=== PATIENT | male | born 1945 | race Two or more races ===

== ENCOUNTER 2020-10-31 15:51 | Inpatient (IN) | payer OTHER, MEDICAID ==
[~2020-10-31] VITALS: Ht 172.7 cm; Wt 76.1 kg
[2020-10-31 16:14] LABS: Basophils # (auto) 0.1 10 ^3/uL (0-0.2); Eosinophils # (auto) 0.9 10 ^3/uL (0-0.8); Eosinophils % (auto) 7.9 % (0.0-7.0); Hematocrit 37.1 % (41.0-53.0); Hemoglobin 12.7 g/dL (13.5-17.5); Lymphocytes # (auto) 1.5 10 ^3/uL (0.4-5.4); Lymphocytes % (auto) 13.6 % (10.0-50.0); Mean Corpuscular Hemoglobin 28.6 pg (28.0-32.0); Mean Corpuscular Hgb Conc. 34.2 g/dL (32.0-36.0); Mean Corpuscular Volume 83.6 fL (80.0-100.0); Monocytes # (auto) 0.8 10 ^3/uL (0-1.3); Monocytes % (auto) 7.5 % (0.0-12.0); Neutrophils # (auto) 7.6 10 ^3/uL (1.6-8.6); Platelet Count (auto) 343 10^3/uL (140-450); Red Blood Cells 4.43 10^6/uL (4.5-5.90); Red Cell Distribution Width 14.9 % (11.8-14.3); White Blood Cell 10.9 10^3/uL (4.4-10.8)
[2020-10-31] MEDS ORDERED: NITROGLYCERIN 0.4 MG SL TAB SL ONE (16:15)
[2020-10-31] MEDS ORDERED: MORPHINE SULFATE 4 MG/ML SYR/VIAL IV ONE ×2 (16:15→18:00)
[2020-10-31] MEDS ORDERED: ASPirin 81 mg TAB PO ONE (16:15)
[2020-10-31] MEDS ORDERED: ONDANSETRON HCL 4 MG/2 ML VIAL IV ONE ×2 (16:15→18:00)
[2020-10-31 16:31] LABS: Albumin 3.9 g/dL (3.4-5.0); BUN/Creatinine Ratio 17.4; Calcium 9.3 mg/dL (8.5-10.1); Potassium 4.1 mmol/L (3.5-5.1)
[2020-10-31 16:38] LABS: Bilirubin, Total 0.3 mg/dL (0.2-1.0)
[2020-10-31] MEDS ORDERED: ENOXAPARIN SOD 100 MG/1 ML SYRINGE SC ONE (17:00)
[2020-10-31] MEDS ORDERED: ONDANSETRON HCL 4 MG/2 ML VIAL IV PRN (18:00)
[2020-10-31] MEDS ORDERED: ACETAMINOPHEN 500 MG TAB PO PRN (18:00)
[2020-10-31] MEDS ORDERED: MORPHINE SULF INJ 2 MG/ML SYRINGE 1ML IV PRN (18:00)
[2020-10-31] MEDS ORDERED: NITROGLYCERIN 0.4 MG SL TAB SL PRN (18:00)
[2020-10-31 18:29] LABS: Urine WBC None Seen /hpf (0 - 3)
[2020-10-31 18:54] LABS: Urine Bacteria NONE SEEN /hpf (None Seen); Urine Blood Negative /uL (Negative); Urine Specific Gravity 1.003 (1.001-1.035)
[2020-10-31 18:59] LABS: Cholesterol 130 mg/dL (< 200); Triglycerides 203 mg/dL (< 150)
[2020-10-31 19:02] LABS: HDL Cholesterol 39 mg/dL (40-59); LDL Cholesterol 66 mg/dL (< 100)
[2020-10-31 19:03] LABS: Alcohol, Urine < 3.0 mg/dL (0-10); Amphetamine Screen, Urine NEGATIVE (NEGATIVE); Barbiturate Scree,Urine NEGATIVE (NEGATIVE); Benzodiazephine Screen, Urine NEGATIVE (NEGATIVE); Cannabinoid Screen, Urine POSITIVE (NEGATIVE); Cocaine Screen, Urine NEGATIVE (NEGATIVE); Opiate Scree,Urine NEGATIVE (NEGATIVE); Phencyclidine Screen, Urine NEGATIVE (NEGATIVE)
[2020-10-31 19:48] LABS: INR 1.01 (0.9-1.15); Partial Thromboplastin Time 27.6 sec (23.0-31.2)
[2020-10-31] MEDS: METOPROLOL TARTRATE 25 MG TAB PO SCH ×2 (22:00→22:13)
[2020-10-31] MEDS: ATORVASTATIN 20 MG TAB PO SCH ×2 (22:00→22:13)
[2020-10-31] MEDS: LISINOPRIL 20 MG TAB PO SCH ×2 (22:00→22:12)
[2020-10-31] MEDS: FAMOTIDINE 20 MG TAB PO SCH ×2 (22:00→22:12)
[2020-11-01] MEDS: hydrALAZINE HCL 20 MG/ML VL IV PRN (02:24)
[2020-11-01 05:33] VITALS: BP 141/62
[2020-11-01] MEDS: ENOXAPARIN SOD 80 MG/0.8ML SYRINGE SC SCH ×2 (06:51→16:37)
[2020-11-01] MEDS: HYDROcodone-ACET 10/325MG TAB PO PRN ×2 (06:51→14:54)
[2020-11-01 09:18] VITALS: BP 147/91
[2020-11-01] MEDS ORDERED: ANGIOMAX 250 MG VIAL IV ONE (09:18)
[2020-11-01] MEDS ORDERED: HEPARIN SODIUM (PORCINE) 5000 UNITS/ML 1ML VIAL ONE (09:18)
[2020-11-01] MEDS ORDERED: VERAPAMIL 2.5MG/ML INJ 2ML VIAL IV ONE (09:18)
[2020-11-01] MEDS ORDERED: fentaNYL CITRATE 100 MCG/2 ML VL ONE (09:19)
[2020-11-01] MEDS ORDERED: LIDOCAINE 2%HCL (LOCAL ANESTH.) INJ 20ML MDV ONE (09:19)
[2020-11-01] MEDS ORDERED: SODIUM CHL 0.9% 0 ML ONE (09:19)
[2020-11-01] MEDS ORDERED: IODIXANOL 320MG/ML 100ML BTL IV ONE ×2 (09:19→10:23)
[2020-11-01] MEDS ORDERED: MIDAZOLAM HCL 1MG/1ML-2 ML VIAL ONE (09:19)
[2020-11-01] MEDS ORDERED: diphenhdrAMINE HCL 50 MG/1 ML VL ONE (09:49)
[2020-11-01] MEDS ORDERED: NITROGLYCERIN 0.4MG/DOSE SPRAY 4.9GM ONE (10:30)
[2020-11-01] MEDS ORDERED: ALPRAZolam 0.5 MG TAB ONE (10:50)
[2020-11-01] MEDS: METOPROLOL TARTRATE 25 MG TAB PO SCH ×2 (12:57→21:52)
[2020-11-01] MEDS: FAMOTIDINE 20 MG TAB PO SCH ×2 (12:57→21:52)
[2020-11-01] MEDS: LISINOPRIL 20 MG TAB PO SCH ×2 (12:58→21:52)
[2020-11-01 13:02] VITALS: BP 185/80
[2020-11-01 13:19] LABS: Basophils # (auto) 0.1 10 ^3/uL (0-0.2); Eosinophils # (auto) 0.1 10 ^3/uL (0-0.8); Eosinophils % (auto) 1.6 % (0.0-7.0); Hematocrit 39.2 % (41.0-53.0); Hemoglobin 13.1 g/dL (13.5-17.5); Lymphocytes # (auto) 1.5 10 ^3/uL (0.4-5.4); Lymphocytes % (auto) 18.1 % (10.0-50.0); Mean Corpuscular Hemoglobin 28.4 pg (28.0-32.0); Mean Corpuscular Hgb Conc. 33.5 g/dL (32.0-36.0); Mean Corpuscular Volume 84.6 fL (80.0-100.0); Monocytes # (auto) 0.7 10 ^3/uL (0-1.3); Monocytes % (auto) 8.2 % (0.0-12.0); Neutrophils # (auto) 5.8 10 ^3/uL (1.6-8.6); Neutrophils % (auto) 71.1 % (37.0-80.0); Platelet Count (auto) 338 10^3/uL (140-450); Red Blood Cells 4.63 10^6/uL (4.5-5.90); Red Cell Distribution Width 14.9 % (11.8-14.3); White Blood Cell 8.2 10^3/uL (4.4-10.8)
[2020-11-01 13:39] LABS: Albumin 3.7 g/dL (3.4-5.0); BUN/Creatinine Ratio 13.5; Calcium 9.7 mg/dL (8.5-10.1); Potassium 3.9 mmol/L (3.5-5.1)
[2020-11-01 13:42] LABS: Bilirubin, Total 0.4 mg/dL (0.2-1.0); Total Protein 7.7 g/dL (6.4-8.2)
[2020-11-01] MEDS: SODIUM CHLOR 0.9% PF (SALINE LOCK) 10ML VIAL/SYR IV SCH ×2 (14:00→21:51)
[2020-11-01 16:50] VITALS: BP 147/73
[2020-11-01] MEDS: ATORVASTATIN 20 MG TAB PO SCH (21:51)
[2020-11-01] MEDS: ALPRAZolam 0.5 MG TAB PO SCH (21:52)
[2020-11-01 22:00] VITALS: BP 145/77
[2020-11-02] MEDS: HYDROcodone-ACET 10/325MG TAB PO PRN ×3 (04:04→22:10)
[2020-11-02] MEDS: hydrALAZINE HCL 20 MG/ML VL IV PRN ×2 (04:55→19:39)
[2020-11-02 05:00] VITALS: BP 170/85
[2020-11-02] MEDS: ENOXAPARIN SOD 80 MG/0.8ML SYRINGE SC SCH (05:14)
[2020-11-02] MEDS: SODIUM CHLOR 0.9% PF (SALINE LOCK) 10ML VIAL/SYR IV SCH ×3 (05:15→22:09)
[2020-11-02 08:00] VITALS: BP 170/85
[2020-11-02 09:30] VITALS: BP 175/90
[2020-11-02] MEDS: FAMOTIDINE 20 MG TAB PO SCH ×2 (09:55→22:09)
[2020-11-02] MEDS: ALPRAZolam 0.5 MG TAB PO SCH ×2 (09:55→19:38)
[2020-11-02] MEDS: METOPROLOL TARTRATE 25 MG TAB PO SCH ×2 (09:55→22:09)
[2020-11-02] MEDS: LISINOPRIL 20 MG TAB PO SCH ×2 (09:57→22:10)
[2020-11-02 13:00] VITALS: BP 149/79
[2020-11-02 16:30] VITALS: BP 167/84
[2020-11-02 22:00] VITALS: BP 133/77
[2020-11-02] MEDS: ATORVASTATIN 20 MG TAB PO SCH (22:09)
[2020-11-03 05:00] VITALS: BP 168/85
[2020-11-03 05:28] LABS: Basophils # (auto) 0.1 10 ^3/uL (0-0.2); Basophils % (auto) 0.5 % (0.0-2.0); Eosinophils # (auto) 0 10 ^3/uL (0-0.8); Eosinophils % (auto) 0.3 % (0.0-7.0); Hematocrit 36.2 % (41.0-53.0); Hemoglobin 12.5 g/dL (13.5-17.5); Lymphocytes # (auto) 1.5 10 ^3/uL (0.4-5.4); Lymphocytes % (auto) 11.8 % (10.0-50.0); Mean Corpuscular Hemoglobin 28.6 pg (28.0-32.0); Mean Corpuscular Hgb Conc. 34.5 g/dL (32.0-36.0); Monocytes # (auto) 1.7 10 ^3/uL (0-1.3); Monocytes % (auto) 13.1 % (0.0-12.0); Neutrophils # (auto) 9.7 10 ^3/uL (1.6-8.6); Neutrophils % (auto) 74.3 % (37.0-80.0); Platelet Count (auto) 282 10^3/uL (140-450); Red Blood Cells 4.36 10^6/uL (4.5-5.90); Red Cell Distribution Width 14.9 % (11.8-14.3); White Blood Cell 13.1 10^3/uL (4.4-10.8)
[2020-11-03] MEDS: SODIUM CHLOR 0.9% PF (SALINE LOCK) 10ML VIAL/SYR IV SCH ×3 (05:41→21:49)
[2020-11-03] MEDS: hydrALAZINE HCL 20 MG/ML VL IV PRN ×2 (05:41→14:51)
[2020-11-03 05:51] LABS: Potassium 3.6 mmol/L (3.5-5.1)
[2020-11-03 05:56] LABS: BUN/Creatinine Ratio 15.6; Calcium 9.4 mg/dL (8.5-10.1)
[2020-11-03] MEDS: HYDROcodone-ACET 10/325MG TAB PO PRN ×2 (06:13→18:38)
[2020-11-03] MEDS: ALPRAZolam 0.5 MG TAB PO SCH (08:33)
[2020-11-03 09:24] VITALS: BP 142/80
[2020-11-03] MEDS: METOPROLOL TARTRATE 25 MG TAB PO SCH ×2 (09:47→21:49)
[2020-11-03] MEDS: FAMOTIDINE 20 MG TAB PO SCH ×2 (09:48→21:49)
[2020-11-03] MEDS: LISINOPRIL 20 MG TAB PO SCH ×2 (09:49→21:49)
[2020-11-03] MEDS: ENOXAPARIN SOD 40 MG/0.4 ML SYRINGE SC SCH (09:50)
[2020-11-03 13:00] VITALS: BP 165/81
[2020-11-03 16:30] VITALS: BP 131/78
[2020-11-03] MEDS ORDERED: ALPRAZolam 0.5 MG TAB PO PRN (16:45)
[2020-11-03] MEDS: ALBUTEROL SULF 2.5 MG/0.5ML(0.5%) NEB SOLN NEB SCH (19:55)
[2020-11-03] MEDS: IPRATROPIUM BROM 0.5 MG/2.5ML INH SOL NEB SCH (19:56)
[2020-11-03] MEDS: ATORVASTATIN 20 MG TAB PO SCH (21:49)
[2020-11-03 22:00] VITALS: BP 136/69
[2020-11-04] VITALS (7 sets, daily range): BP systolic 136–177; BP diastolic 66–93
[2020-11-04] MEDS: ALPRAZolam 0.5 MG TAB PO PRN ×3 (02:40→23:26)
[2020-11-04] MEDS: hydrALAZINE HCL 20 MG/ML VL IV PRN ×2 (04:07→16:43)
[2020-11-04] MEDS: HYDROcodone-ACET 10/325MG TAB PO PRN ×2 (04:07→15:21)
[2020-11-04] MEDS: ALBUTEROL SULF 2.5 MG/0.5ML(0.5%) NEB SOLN NEB SCH ×3 (06:14→18:31)
[2020-11-04] MEDS: IPRATROPIUM BROM 0.5 MG/2.5ML INH SOL NEB SCH ×3 (06:14→18:31)
[2020-11-04] MEDS: SODIUM CHLOR 0.9% PF (SALINE LOCK) 10ML VIAL/SYR IV SCH ×3 (06:38→22:03)
[2020-11-04] MEDS: METOPROLOL TARTRATE 25 MG TAB PO SCH ×2 (10:19→22:04)
[2020-11-04] MEDS: LISINOPRIL 20 MG TAB PO SCH ×2 (10:20→22:05)
[2020-11-04] MEDS: ENOXAPARIN SOD 40 MG/0.4 ML SYRINGE SC SCH (10:20)
[2020-11-04] MEDS: FAMOTIDINE 20 MG TAB PO SCH ×2 (10:20→22:04)
[2020-11-04] MEDS: ATORVASTATIN 20 MG TAB PO SCH (22:03)
[2020-11-05 05:00] VITALS: BP 136/64
[2020-11-05] MEDS: IPRATROPIUM BROM 0.5 MG/2.5ML INH SOL NEB SCH ×3 (06:18→19:27)
[2020-11-05] MEDS: ALBUTEROL SULF 2.5 MG/0.5ML(0.5%) NEB SOLN NEB SCH ×3 (06:18→19:27)
[2020-11-05] MEDS: SODIUM CHLOR 0.9% PF (SALINE LOCK) 10ML VIAL/SYR IV SCH ×3 (06:22→21:29)
[2020-11-05] MEDS: ALPRAZolam 0.5 MG TAB PO PRN ×2 (08:16→16:22)
[2020-11-05] MEDS: HYDROcodone-ACET 10/325MG TAB PO PRN ×4 (08:49→21:30)
[2020-11-05 09:00] VITALS: BP 147/77
[2020-11-05] MEDS: METOPROLOL TARTRATE 25 MG TAB PO SCH ×2 (09:51→21:34)
[2020-11-05] MEDS: FAMOTIDINE 20 MG TAB PO SCH ×2 (09:51→21:29)
[2020-11-05] MEDS: LISINOPRIL 20 MG TAB PO SCH ×2 (09:52→21:33)
[2020-11-05] MEDS: ENOXAPARIN SOD 40 MG/0.4 ML SYRINGE SC SCH (09:52)
[2020-11-05 13:00] VITALS: BP 142/82
[2020-11-05 17:00] VITALS: BP 136/73
[2020-11-05] MEDS: ATORVASTATIN 20 MG TAB PO SCH (21:29)
[2020-11-05 22:00] VITALS: BP 135/66
[2020-11-06] MEDS: ALPRAZolam 0.5 MG TAB PO PRN ×3 (00:24→16:31)
[2020-11-06] MEDS: HYDROcodone-ACET 10/325MG TAB PO PRN ×4 (04:13→19:45)
[2020-11-06 05:00] VITALS: BP 117/73
[2020-11-06] MEDS: SODIUM CHLOR 0.9% PF (SALINE LOCK) 10ML VIAL/SYR IV SCH ×3 (05:37→21:32)
[2020-11-06] MEDS: ALBUTEROL SULF 2.5 MG/0.5ML(0.5%) NEB SOLN NEB SCH ×3 (06:03→18:00)
[2020-11-06] MEDS: IPRATROPIUM BROM 0.5 MG/2.5ML INH SOL NEB SCH ×3 (06:03→18:00)
[2020-11-06 09:00] VITALS: BP 143/76
[2020-11-06] MEDS: FAMOTIDINE 20 MG TAB PO SCH ×2 (09:39→21:31)
[2020-11-06] MEDS: METOPROLOL TARTRATE 25 MG TAB PO SCH ×2 (09:39→21:32)
[2020-11-06] MEDS: LISINOPRIL 20 MG TAB PO SCH ×2 (09:40→21:32)
[2020-11-06] MEDS: ENOXAPARIN SOD 40 MG/0.4 ML SYRINGE SC SCH (09:40)
[2020-11-06 13:00] VITALS: BP 126/70
[2020-11-06 17:00] VITALS: BP 116/70
[2020-11-06 17:06] VITALS: BP 131/76
[2020-11-06] MEDS: ATORVASTATIN 20 MG TAB PO SCH (21:31)
[2020-11-06 22:00] VITALS: BP 108/47
[2020-11-07] MEDS: ALPRAZolam 0.5 MG TAB PO PRN (00:32)
[2020-11-07] MEDS: HYDROcodone-ACET 10/325MG TAB PO PRN (01:22)
[2020-11-07 05:49] VITALS: BP 122/71
[2020-11-07] MEDS: ALBUTEROL SULF 2.5 MG/0.5ML(0.5%) NEB SOLN NEB SCH (06:03)
[2020-11-07] MEDS: IPRATROPIUM BROM 0.5 MG/2.5ML INH SOL NEB SCH (06:03)
[2020-11-07 06:05] VITALS: BP 150/70
[2020-11-07 06:11] VITALS: BP 150/70
[2020-11-07] MEDS: SODIUM CHLOR 0.9% PF (SALINE LOCK) 10ML VIAL/SYR IV SCH (06:23)
[2020-11-07 06:41] VITALS: BP 122/71
== END 2020-11-07 07:45 | disposition short-term general hospital (02) | DRG 282 ==
LOC: ER 15:51 → EDBD 15:51 → TELE 17:57 → TELE-WESTW 11-01 01:06
PROVIDERS: ADMIT Hospitalist; ATTEND Hospitalist
PROC: 4A023N7 Measurement of Cardiac Sampling and Pressure, Left Heart, Percutaneous Approach (ICD-10-PCS; principal; 2020-11-01)
PROC: B211YZZ Fluoroscopy of Multiple Coronary Arteries using Other Contrast (ICD-10-PCS; 2020-11-01)
PROC: B215YZZ Fluoroscopy of Left Heart using Other Contrast (ICD-10-PCS; 2020-11-01)
PROC: B41FYZZ Fluoroscopy of Right Lower Extremity Arteries using Other Contrast (ICD-10-PCS; 2020-11-01)
DX: I21.4 Non-ST elevation (NSTEMI) myocardial infarction (principal); Z20.822 Contact with and (suspected) exposure to COVID-19; D63.8 Anemia in other chronic diseases classified elsewhere; E07.9 Disorder of thyroid, unspecified; E78.5 Hyperlipidemia, unspecified; J44.9 Chronic obstructive pulmonary disease, unspecified; I50.9 Heart failure, unspecified; I11.0 Hypertensive heart disease with heart failure; E11.51 Type 2 diabetes mellitus with diabetic peripheral angiopathy without gangrene; I25.10 Atherosclerotic heart disease of native coronary artery without angina pectoris; Z79.84 Long term (current) use of oral hypoglycemic drugs; Z82.49 Family history of ischemic heart disease and other diseases of the circulatory system; Z83.3 Family history of diabetes mellitus; Z87.891 Personal history of nicotine dependence; Z98.61 Coronary angioplasty status; Z99.81 Dependence on supplemental oxygen; Z88.6 Allergy status to analgesic agent; Z88.8 Allergy status to other drugs, medicaments and biological substances; I25.2 Old myocardial infarction; Z79.899 Other long term (current) drug therapy
CPT/HCPCS: 36415; 71045; 80048; 80053; 80061; 80307; 81001; 82962; 83036; 83880; 84484; 85025; 85379; 85610; 85730; 87426; 93005; 93306; 94640; 96372; 96374; 96375; 99152; 99153; G0378; J2250; J2405; Q9967

== ENCOUNTER 2020-11-13 08:53 | Emergency (ER) | payer OTHER, MEDICAID ==
[~2020-11-13] VITALS: Ht 172.7 cm; Wt 79.4 kg
[2020-11-13 10:23] VITALS: BP 119/70
== END 2020-11-13 10:12 | disposition home or self-care (01) ==
LOC: EDBD 08:53 → ER 08:53
DX: T83.098A Other mechanical complication of other urinary catheter, initial encounter (principal); J44.9 Chronic obstructive pulmonary disease, unspecified; E11.9 Type 2 diabetes mellitus without complications; I10 Essential (primary) hypertension; I25.2 Old myocardial infarction; Z88.6 Allergy status to analgesic agent; Z87.891 Personal history of nicotine dependence
CPT/HCPCS: 51702; 93005

== ENCOUNTER → 2021-04-24 | Outpatient (CLI) | payer OTHER, MEDICAID | END | disposition home or self-care (01) | LOC: Rad HDHVI 08:40 | PROVIDERS: ATTEND Internal Medicine | DX: I10 Essential (primary) hypertension (principal); E78.5 Hyperlipidemia, unspecified | CPT/HCPCS: 93880 ==

== ENCOUNTER 2021-06-08 10:49 | Emergency (ER) | payer OTHER, MEDICAID ==
[~2021-06-08] VITALS: Ht 172.7 cm; Wt 64.0 kg
[2021-06-08] MEDS ORDERED: cloNIDine HCL 0.1 MG TAB PO ONE (12:00)
[2021-06-08 12:32] LABS: Basophils # (auto) 0.1 10 ^3/uL (0-0.2); Basophils % (auto) 0.8 % (0.0-2.0); Eosinophils # (auto) 0 10 ^3/uL (0-0.8); Eosinophils % (auto) 0.2 % (0.0-7.0); Hematocrit 39.1 % (41.0-53.0); Lymphocytes # (auto) 1.6 10 ^3/uL (0.4-5.4); Lymphocytes % (auto) 14.7 % (10.0-50.0); Mean Corpuscular Hemoglobin 28.4 pg (28.0-32.0); Mean Corpuscular Hgb Conc. 33.2 g/dL (32.0-36.0); Mean Corpuscular Volume 85.5 fL (80.0-100.0); Monocytes # (auto) 0.7 10 ^3/uL (0-1.3); Monocytes % (auto) 6.8 % (0.0-12.0); Neutrophils # (auto) 8.4 10 ^3/uL (1.6-8.6); Neutrophils % (auto) 77.5 % (37.0-80.0); Nucleated Red Blood Cells % 0.2 %; Red Blood Cells 4.57 10^6/uL (4.5-5.90); Red Cell Distribution Width 15.1 % (11.8-14.3); White Blood Cell 10.9 10^3/uL (4.4-10.8)
[2021-06-08 12:44] LABS: Potassium 3.4 mmol/L (3.5-5.1)
[2021-06-08 12:54] LABS: Albumin 3.8 g/dL (3.4-5.0); BUN/Creatinine Ratio 16.7; Bilirubin, Total 0.5 mg/dL (0.2-1.0); Total Protein 7.6 g/dL (6.4-8.2)
[2021-06-08 14:10] LABS: Urine Bacteria FEW /hpf (None Seen); Urine Blood TRACE /uL (Negative); Urine Specific Gravity 1.005 (1.001-1.035); Urine WBC <1 /hpf (0 - 3)
[2021-06-08] MEDS ORDERED: METOPROLOL TARTRATE 25 MG TAB PO ONE (14:15)
[2021-06-08] MEDS ORDERED: ALPRAZolam 0.5 MG TAB PO ONE (14:15)
[2021-06-08 15:06] VITALS: BP 169/85
== END 2021-06-08 15:28 | disposition home or self-care (01) ==
LOC: ER 10:49
DX: I10 Essential (primary) hypertension (principal); R51.9 Headache, unspecified; J44.9 Chronic obstructive pulmonary disease, unspecified; E11.9 Type 2 diabetes mellitus without complications; E78.5 Hyperlipidemia, unspecified; Z87.891 Personal history of nicotine dependence; Z88.6 Allergy status to analgesic agent
CPT/HCPCS: 36415; 70450; 80053; 81001; 85025; 93005

== ENCOUNTER → 2021-11-27 | Outpatient (CLI) | payer OTHER, MEDICAID ==
[~2021-11-27] MED LIST: ALPR1TAB2 PO; CLON0.3D4 PO; CLOP75TA70 PO; DULA1INJ SC; HYDR-4798 PO; HYDR25TA4 PO; METF-929 PO; PANT40TA2 PO; ROSU40TA PO; SACU1TAB7 PO; cloNIDine HCL 0.1 MG TAB ONE; cloNIDine HCL 0.1 MG TAB PO ONE
[2021-11-27 08:00] VITALS: BP 225/98
[2021-11-27 11:35] VITALS: BP 168/66
[2021-11-27 11:42] LABS: Basophils # (auto) 0.1 10 ^3/uL (0-0.2); Basophils % (auto) 0.6 % (0.0-2.0); Eosinophils # (auto) 0.1 10 ^3/uL (0-0.8); Hematocrit 34.7 % (41.0-53.0); Hemoglobin 11.3 g/dL (13.5-17.5); Lymphocytes # (auto) 1.1 10 ^3/uL (0.4-5.4); Lymphocytes % (auto) 11.9 % (10.0-50.0); Mean Corpuscular Hemoglobin 29.1 pg (28.0-32.0); Mean Corpuscular Hgb Conc. 32.6 g/dL (32.0-36.0); Mean Corpuscular Volume 89.2 fL (80.0-100.0); Monocytes # (auto) 0.7 10 ^3/uL (0-1.3); Monocytes % (auto) 7.7 % (0.0-12.0); Neutrophils # (auto) 7.1 10 ^3/uL (1.6-8.6); Neutrophils % (auto) 78.8 % (37.0-80.0); Red Blood Cells 3.89 10^6/uL (4.5-5.90); Red Cell Distribution Width 13.9 % (11.8-14.3)
[2021-11-27 11:50] LABS: Calcium 9.7 mg/dL (8.5-10.1); Potassium 3.7 mmol/L (3.5-5.1)
[2021-11-27 12:02] LABS: INR 0.97 (0.9-1.15); Partial Thromboplastin Time 25.6 sec (24.6-33.4)
== END | disposition home or self-care (01) ==
LOC: Rad HDHVI 08:40
PROVIDERS: ATTEND Internal Medicine
DX: J84.89 Other specified interstitial pulmonary diseases (principal); I70.0 Atherosclerosis of aorta; I10 Essential (primary) hypertension; I25.10 Atherosclerotic heart disease of native coronary artery without angina pectoris; I65.29 Occlusion and stenosis of unspecified carotid artery; Z01.812 Encounter for preprocedural laboratory examination
CPT/HCPCS: 36415; 71046; 80048; 85025; 85610; 85730; 93005; G0463